=== PATIENT | male | born 1945 | race Caucasian/White ===

== ENCOUNTER → 2024-02-04 09:03 | Outpatient (CLI) | payer MEDICARE, OTHER, SELFPAY ==
--- NOTE | 2024-02-04 09:10 | DI.CT.S_ITS ---
PROCEDURE: CT ABDOMEN PELVIS W CON INDICATIONS: Ventral hernia without obstruction or gangrene TECHNIQUE: After the administration of intravenous contrast, axial sections acquired from the lung bases to the pubic symphysis. Coronal and sagittal reformats were performed. For radiation dose reduction, the following was used: automated exposure control, adjustment of mA and/or kV according to patient size. COMPARISON: None. FINDINGS: Image quality: Diagnostic. Lower Chest: Gynecomastia. Large hiatal hernia. Small lymph nodes in the hernia sac measuring up to 0.6 cm, (2/12). Aortic valvular calcification. Coronary artery calcifications. ABDOMEN: Liver: No solid mass. Gallbladder: No radiopaque gallstones or wall thickening. Biliary ducts: No biliary dilation. Pancreas: No ductal dilation. Spleen: Size is within normal limits. Adrenal Glands: No adrenal nodules. Kidneys and Ureters: No hydronephrosis. No solid mass. No complex renal cystic lesion which requires follow up. Stomach and Bowel: Rectal stump. Left colostomy. There is a large amount of stool in the right colon. The appendix is not dilated. No small bowel obstruction. Small left peristomal hernia. The stomach is not distended. Peritoneum: No abnormal intraperitoneal fluid. No free air. Ventral Wall: Tony rectus diastasis. Abdominal Nodes: No retroperitoneal or mesenteric adenopathy by size criteria. Vessels: Abdominal aortic aneurysm measuring 4.8 cm, (3/). 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 Extensive calcified atherosclerotic plaque. PELVIS: Pelvic Organs: Unremarkable. Bladder: No bladder wall thickening, accounting for underdistention. Pelvic Nodes: No enlarged lymph nodes. Miscellaneous: Fat containing left inguinal hernia. Bones: No aggressive osseous abnormality. T12 and L1 compression fractures. IMPRESSION: 1. Large amount of stool in the right colon. Suggesting constipation. 2. No small bowel obstruction. No free fluid. 3. Left peristomal hernia containing small bowel. 4. Abdominal aortic aneurysm measuring 4.8 cm. 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 Recommend comparison to prior imaging when available. Aneurysms are at increased risk for rupture given their large size. 4. Large hiatal hernia. Dictated by: Rylan Rapp M.D. on 02/04/2024 at 11:38 Approved by: Rylan Rapp M.D. on 02/04/2024 at 11:50
[2024-02-04 09:53] LABS: Estimated Glomerular Filt Rate 30 mL/min (>60)
== END ==
PROVIDERS: Specialist; Family Provider Family Medicine; PCP Family Medicine; Referring Provider Family Medicine; Visit Provider Family Medicine
DX: K43.9 Ventral hernia without obstruction or gangrene (principal); K43.2 Incisional hernia without obstruction or gangrene; I71.40 Abdominal aortic aneurysm, without rupture, unspecified; I72.3 Aneurysm of iliac artery; K44.9 Diaphragmatic hernia without obstruction or gangrene
CPT/HCPCS: 36415; 74177; 82565; Q9967

== ENCOUNTER 2024-02-16 11:44 | Day surgery (SDC) | payer MEDICARE, OTHER, SELFPAY ==
[2024-02-12 07:16] VITALS: BMI 24.9
--- NOTE | 2024-02-16 | PATH_ITS ---
[facility] Accession Number: [id number] No. of containers..03 Tissue . 01 Material submitted: . PART A: toe - LEFT FIRST TOE PART B: toe - LEFT SECOND TOE PART C: toe - LEFT THIRD TOE . 01 Diagnosis: A. LEFT FIRST TOE, AMPUTATION: Skin and underlying fibroconnective tissue with ulcer. Underlying bone with acute ostemyelitis. Skin, soft tissue and bone articular resection margins are viable and are negative for acute osteomyelitis. See comment. . B. LEFT SECOND TOE, AMPUTATION: Skin and underlying fibroconnective tissue with ulcer. Underlying bone with acute ostemyelitis. Skin, soft tissue and bone articular resection margins are viable and are negative for acute osteomyelitis. See comment. . C. LEFT THIRD TOE, AMPUTATION: Skin and underlying fibroconnective tissue with mild chronic inflammation, fibrosis, and reactive epithelial changes. Underlying bone with evidence of remodeling. No diagnostic features of acute osteomyelitis identified. Skin, soft tisue, and bone articular resection margins are viable, and are negative for acute osteomyelitis. See comment. [facility] 02/26/2024 0946 Local . 01 Comment: A-C. A (PASF) special stain is negative for fungal organisms. Control stains appropriately. . 01 Electronically signed: . Raegan Purdy MD, Pathologist NPI- [id number] . 01 Gross description: . A. Received in formalin with two identifiers and first toe left (Note: Portion of specimen sent for culture), is a presumably amputated portion of digit measuring 3.3 cm in length by 3.0 cm in diameter with exposed bone extending 1.5 cm from the soft tissue margin. The bone margin is roughened and irregular possibly consistent with tissue sent for culture. The bone margin is inked orange while the remaining soft tissue margins are inked blue. The cutaneous surface has an ulcerated lesion on the distal tip of the digit measuring 1.2 x 1.0 cm. The remaining skin is loera and unremarkable with a loera nailbed. Sectioning reveals loera soft tissue with loera hard osseous tissue that is relatively difficult to section with a scalpel. Decal Cutter sections are submitted as follows after decalcification: A1: Soft tissue margin en face. A2: Bone margin en face. A3: Longitudinal section to include lesion and underlying bone. B. Received in formalin with two identifiers and second toe left (Note: Portion of specimen sent for culture), is a presumably disarticulated portion of digit meauring 3.3 cm in lenght by 2.1 cm in average diameter with exposed bone extending 1.4 cm from the soft tissue margin. A small ragged portion of articular surface is identified, but most of the bone is ragged consistent with a portion being taken for culture. The articular surface and roughened bone is inked orange, the soft tissue margin is inked blue. The cutaneous surface has an ulcerated lesion at the distal tip of the digit measuring 1.4 x 0.7 cm while the remaining skin is loera and wrinkled, and the nailbed is thickened. Sectioning reveals loera soft tissue and loera to regular osseous tissue that is relatively difficult to section with a scalpel. Decal Cutter sections are submitted as follows: B1: Soft tissue margin en face. B2: Articular surface/bone margin en face. B3: Longitudinal section with lesion underlying bone. Specimen decalcified. C. Received in formalin with two identifiers and third toe left (Note: Portion of specimen sent for culture), is a presumably disarticulated portion of digit measuring 3.2 cm in length by 1.8 cm in average diameter with exposed bone extending 1.1 cm from the soft tissue margin. A partial articular surface is identified with a roughened area consistent with tissue removed for culture. A crusted lesion is identified at the distal tip of the digit measuring 1.4 x 1.0 cm while the remaining skin is loera, wrinkled, and unremarkable. No nailbed is grossly identified. The soft tissue margin is inked blue while the articular surface is inked orange. Sectioning reveals the soft tissue is loera and unremarkable while the osseous tissue is relatively difficult to section with a scalpel. Specimen decalcified and hospital sales representative specimens are submitted as follows: C1: Soft tissue margin en face. C2: Articular surface en face. C3: Longitudinal section with lesion and underlying bone. ([id number]) /MICAH 02/18/2024 1045 Local . 01 Pathologist provided ICD-10: M86.9 . 01 CPT . 136950, 323666, [id number], 515648, 730858, [id number], [id number], [id number], [id number] Specimen Comment: A courtesy copy of this report has been sent to [phone] Performed at: [address] [id number] MD Romel Mcdonald MD Phone: [phone]
[2024-02-16 13:12] VITALS: BMI 25.0
[2024-02-16] MEDS: LACTATED RINGERS 1,000 ML 42 ML IV ×2 (13:32→16:24)
--- NOTE | 2024-02-16 13:44 | PM.PREOP ---
Pre-operative Note Interval Note History & Physical reviewed/Exam performed by Physician: Yes Changes to H&P: No
--- NOTE | 2024-02-16 13:45 | P.OP_ITS ---
Operative Date/Time/Diagnoses Date of procedure: 02/16/24 Time of procedure: 13:45 Pre-op diagnosis: Left first, second, and third toe ulcerations with suspected osteomyelitis Post-op diagnosis: same Procedure & Clinicians Procedure: Left hallux amputation distal phalanx. Left second toe amputation at proximal interphalangeal joint, percutaneous metatarsophalangeal flexor tendon release. Left third toe amputation at proximal interphalangeal joint, percutaneous metatarsophalangeal flexor tendon release. Same procedure as scheduled: Yes Indications: 78 yo male with injury of a fall and found down for an unknown amount of time. Wounds were sustained to the toes and developed further. Bone was exposed to the toe tips with ulcerations toes one, two, and three, and after evaluation and discussion, consent was made to remove the portion or all of the affected toes and remodel as needed to allow for healing and skin closure. We discussed the risks, potential complications, expected outcomes, alternatives. Consent was signed, anesthesia cleared him for surgery and his primary care physician cleared him as well, no contraindications to the procedure at this time. Surgeon: Ariella Pinto Click Yes if Unassisted: Yes Anesthesia Type: Sedation and Local Operative Notes Closure Type: primary Specimen(s): other (Culture base distal phalanx hallux, base intermediate phalanx toes 2 and 3. Pathology specimens toes 1,2,3 sent to identify. All LEFT foot.) Estimated Blood Loss (mL): 30 Blood products transfused: none Procedure in detail: The patient was brought to the operating room and placed on the operating table in the supine position. The tourniquet was placed about the left ankle. Well p added, appropriately aligned. After induction of mild IV sedation local anesthesia was performed to the left toes 1, 2, and 3, well away from the areas of the ulcerations. The left foot and ankle were prepped and draped in the usual aseptic manner. 1. After check of anesthesia a full-thickness circumferential incision was made around the hallux just distal to the head of the proximal phalanx. Gentle disarticulation of the interphalangeal joint was performed. The toe was passed from the field. The head of the proximal phalanx appeared clean and no necrotic tissue was seen. The skin edges were revised and in order to allow for appropriate coverage, a saw was used to reduce the tip of the prominent proximal phalanx bone. The area was irrigated with copious amounts of normal sterile saline. Skin and tissue was revised to allow for appropriate closure. 2. Next, after a check of anesthesia, a full-thickness circumferential incision was made around the second toe just distal to the head of the proximal phalanx. Gentle disarticulation of the interphalangeal joint was performed. The toe was passed from the field. The head of the proximal phalanx appeared clean and no necrotic tissue was seen. The skin edges were revised and in order to allow for appropriate coverage, a rongeur was used to reduce the tip of the prominent proximal phalanx bone. The area was irrigated with copious amounts of normal sterile saline. Skin and tissue was revised to allow for appropriate closure. Due to the contracture of the metatarsophalangeal joint, to attempt to relax this a little further, a percutaneous metatarsophalangeal capsulotomy with flexor tenotomy was performed using an #11 blade from the plantar aspect. 3. The same procedures were performed to the third toe and metatarsophalangeal joint. Vascular status remained intact to the foot during the procedure, the tourniquet was not inflated. There was mild blood loss and cautery was available but not needed at the close of the procedure. 4-0 Vicryl was used subcutaneously for closure for the hallux incision and 3-0 and 4-0 nylon for the skin on each of the toes and the percutaneous incisions. The forefoot area was dressed with a sterile lightly compressive dressing. He was placed in stockinette and postoperative shoe. Of note, the 3 bone cultures and 3 pathology specimens were passed from the field and recorded and sent to the lab for identification. Complications: none Post-operative Condition: stable Disposition: PACU Plan for aftercare: Following a period of postoperative monitoring, the patient will be discharged to home on written and oral postoperative instructions including keeping the dressing dry and intact, minimal weight to the surgical foot using walker or wheelchair, elevating the foot when seated home. DVT prevention techniques have been reviewed. For the 1st postoperative visit the dressing will be changed and close to the 3rd postoperative week we will likely remove the sutures. Rx written for [place] 5/325mg tabs will be picked up today by his at the hospital to be used for breakthrough pain mgmt. He has acetaminophen OTC he is able to use otherwise and this was reviewed.
[2024-02-16] MEDS: CEFAZOLIN 2 GM/100 ML PREMIX 100 ML IV (15:05)
[2024-02-16] MEDS: ACETAMINOPHEN IV 1,000 MG/100 ML VIAL 400 MG IV (15:20)
--- NOTE | 2024-02-16 15:27 | SUR.OPER ---
Supine on padded OR bed, head on pillow, arms secured on padded arm boards at <90 degrees abduction, legs uncrossed, safety belt at thigh, tape over blanket over non-operative leg.
[2024-02-16] MEDS: BUPIVACAINE 0.5% MDV 30 ML INJ (15:35)
[2024-02-16] MEDS: LIDOCAINE 2% INJ MDV 20ML 20 ML INJ (15:35)
[2024-02-16 17:00] VITALS: BP 105/53; PULSE 93; RESP 19; TEMP 36.2; O2SAT 100
[2024-02-16 17:05] VITALS: BP 108/69; PULSE 87; RESP 25; O2SAT 98
[2024-02-16 17:10] VITALS: BP 130/67; PULSE 97; RESP 15; O2SAT 99
[2024-02-16] MEDS: HYDROCODONE/ACET 5/325 TABLET 1 TAB PO (17:10)
[2024-02-16 17:25] VITALS: BP 129/73; PULSE 99; RESP 20; TEMP 36.3; O2SAT 98
== END 2024-02-16 17:40 | disposition home or self-care (01) ==
PROVIDERS: Family Provider Family Medicine; PCP Family Medicine; Referring Provider Podiatrist; Visit Provider Podiatrist
PROC: (CPT 28825; principal; 2024-02-16 13:45)
DX: L97.524 Non-pressure chronic ulcer of other part of left foot with necrosis of bone (principal); M20.42 Other hammer toe(s) (acquired), left foot
CPT/HCPCS: 28825 ×3; 87070; 87075; 87205; J0136; J0690; J2704

== ENCOUNTER → 2024-03-24 14:03 | Outpatient (CLI) | payer MEDICARE, OTHER, SELFPAY | PROVIDERS: Family Provider Family Medicine; PCP Family Medicine; Referring Provider Specialist; Visit Provider Specialist | DX: C61 Malignant neoplasm of prostate (principal) | CPT/HCPCS: 36415; 84153 ==